=== PATIENT | female | born 1935 ===

== ENCOUNTER 2018-01-13 08:43 | Outpatient (CLI) | payer OTHER ==
[~2018-01-13] VITALS: Ht 160 cm; Wt 63.5 kg
[2018-01-13] MEDS ORDERED: AURO22 ML OTIC (10:47)
== END 2018-01-13 09:00 | disposition home or self-care (01) ==
LOC: OFIC 805 08:43
DX: J31.0 Chronic rhinitis (principal); H90.3 Sensorineural hearing loss, bilateral; H61.23 Impacted cerumen, bilateral

== ENCOUNTER 2018-01-29 09:07 | Outpatient (CLI) | payer OTHER ==
[~2018-01-29] VITALS: Ht 152.4 cm; Wt 63.5 kg
[~2018-01-29 09:07] MED LIST: AURO22 ML OTIC
== END 2018-01-29 09:15 | disposition home or self-care (01) ==
LOC: OFIC 805 09:07
DX: H61.23 Impacted cerumen, bilateral (principal); H90.3 Sensorineural hearing loss, bilateral; J31.0 Chronic rhinitis